=== PATIENT | female | born 1985 | race Caucasian/White ===

== ENCOUNTER 2018-09-13 17:54 | Emergency (ER) | payer SELFPAY ==
[~2018-09-13] VITALS: Ht 165.1 cm; Wt 138.2 kg
[2018-09-13 17:58] VITALS: Ht 165.1 cm; Wt 138.2 kg
[2018-09-13] MEDS ORDERED: SOD CHLORIDE 0.9% 500 ML IV STA (20:22)
[2018-09-13 22:40] VITALS: BP 147/66; PULSE 81; RESP 14
--- NOTE | 2018-10-02 23:19 | ERD ---
ER Documentation Chief Complaint Chief Complaint Complains of a syncopal episode HPI 33 female with a syncopal episode while making [place] dinner. She denies any loss of bowel or bladder function. Denies any seizure-like activity. No tongue biting or incontinence. No chest pain or palpitations. No other current complaints. ROS All systems reviewed and are negative except as per history of present illness. Medications Home Meds No Active Prescriptions or Reported Meds Allergies Allergies: Coded Allergies: No Known Allergy (Unverified , 02/06/12) PMhx/Soc Medical and Surgical Hx: pt denies Medical Hx, pt denies Surgical Hx History of Surgery: No Anesthesia Reaction: No Hx Neurological Disorder: No Hx Respiratory Disorders: No Hx Cardiac Disorders: No Hx Psychiatric Problems: No Hx Miscellaneous Medical Probl: No Hx Alcohol Use: No Hx Substance Use: No Hx Tobacco Use: No Smoking Status: Never smoker Physical Exam Physical Exam Const: No acute distress Head: Atraumatic Eyes: Normal Conjunctiva ENT: Normal External Ears, Nose and Mouth. Neck: Full range of motion. No meningismus. Resp: Clear to auscultation bilaterally Cardio: Regular rate and rhythm, no murmurs Abd: Soft, non tender, non distended. Normal bowel sounds Skin: No petechiae or rashes Back: No midline or flank tenderness Ext: No cyanosis, or edema Neur: Awake and alert Psych: Normal Mood and Affect Results 24 hrs Laboratory Tests Test 09/13/18 20:27 09/13/18 20:32 09/13/18 20:33 09/13/18 20:53 White Blood 8.4 10^3/ul Count Red Blood Count 5.20 10^6/ul Hemoglobin 14.1 g/dl Hematocrit 44.8 % Mean Corpuscular 86.2 fl Volume Mean Corpuscular 27.1 pg Hemoglobin Mean Corpuscular 31.5 g/dl Hemoglobin [place] nt Red Cell 13.5 % Distribution Width Platelet Count 260 10^3/UL Mean Platelet 9.7 fl Volume Immature 0.500 % Granulocytes % Neutrophils % 77.8 % Lymphocytes % 14.0 % Monocytes % 6.8 % Eosinophils % 0.7 % Basophils % 0.2 % Nucleated Red 0.0 /100WBC Blood Cells % Immature 0.040 10^3/ul Granulocytes # Neutrophils # 6.5 10^3/ul Lymphocytes # 1.2 10^3/ul Monocytes # 0.6 10^3/ul Eosinophils # 0.1 10^3/ul Basophils # 0.0 10^3/ul Nucleated Red 0.0 10^3/ul Blood Cells # POC Beta HCG, NEGATIVE Qualitative Bedside Glucose 105 mg/dL Prothrombin Time 13.3 Sec Prothrombin Time 1.0 Ratio INR 1.00 International Normalized Ratio Activated 28.6 Sec Partial Thrombop last Time Sodium Level 140 mmol/L Potassium Level 3.8 mmol/L Chloride Level 102 mmol/L Carbon Dioxide 28 mmol/L Level Anion Gap 10 Blood Urea 13 mg/dl Nitrogen Creatinine 0.47 mg/dl Est Glomerular > 60 mL/min Filtrat Rate mL/min Glucose Level 106 mg/dl Calcium Level 8.8 mg/dl Troponin I < 0.012 ng/ml Current Medications Medications Dose Sig/Balbir Start Time Status Last (Trade) Ordered Route PRN Stop Time Admin Dose Reason Admin Sodium 500 ml @ Q1H STAT 09/13/18 DC 09/13/18 Chloride 500 mls/hr IV 20:22 20:34 09/13/18 21:21 Procedures/MDM EKG: Rate/Rhythm: [Normal Sinus Rhythm] QRS, ST, T-waves: [No changes consistent w/ acute ischemia] Impression: [No evidence of ischemia or arrhythmia] Chest X-ray 1V Interpreted by me: Soft Tissue: No acute abnormalities Bones: No acute abnormalities Mediastinum/Cardiac Silhouette/Lungs: [No acute abnormalities] Patient's syncopal symptoms have stabilized while in the department and are suitable for outpatient follow up. Exam and work up not consistent w/ ischemia, arrhythmia, stroke, PE or dissection. Departure Diagnosis: Primary Impression: Syncope Syncope type: unspecified Qualified Codes: R55 - Syncope and collapse Condition: Stable Patient Instructions: Syncope, Unk Cause MARYLOU MCMAHAN Oct 02, 2018 23:19
== END 2018-09-13 22:49 | disposition home or self-care (01) ==
LOC: E/R 17:54
DX: R55 Syncope and collapse (principal)
CPT/HCPCS: 70450; 71045; 80048; 81025; 82962; 84484; 85025; 85610; 85730; 93005; J7040; 36415